=== PATIENT | female | born 1965 | race Caucasian/White ===

== ENCOUNTER 2018-09-28 13:34 | Emergency (ER) | payer MEDICAID, OTHER ==
[~2018-09-28] VITALS: Ht 152.4 cm; Wt 82.0 kg
[2018-09-28] MEDS ORDERED: KETOROLAC 60MG/2ML VIAL IM ONE (14:00)
[2018-09-28] MEDS ORDERED: MORPHINE SULFATE 10 MG/ML CPJ IM ONE (16:00)
[2018-09-28] MEDS ORDERED: ONDANSETRON 4MG ODT PO ONE (16:00)
[2018-09-28] MEDS ORDERED: MORPHINE SULFATE 2 MG/ML CPJ (NOT FOR IM USE) IV ONE (16:12)
[2018-09-28 17:35] VITALS: BP 128/80
== END 2018-09-28 17:47 | disposition home or self-care (01) ==
LOC: ER 14:18
DX: S52.512A Displaced fracture of left radial styloid process, initial encounter for closed fracture (principal); S52.612A Displaced fracture of left ulna styloid process, initial encounter for closed fracture; W01.0XXA Fall on same level from slipping, tripping and stumbling without subsequent striking against object, initial encounter; Y93.89 Activity, other specified; Y92.89 Other specified places as the place of occurrence of the external cause; Y99.8 Other external cause status
CPT/HCPCS: 29125; 73090; 73110; 73130; 96372; 99283; J1885; J2270; Q0162